=== PATIENT | male | born 1940 | race Caucasian/White ===

== ENCOUNTER 2023-04-08 18:10 | Emergency (ER) | payer MEDICARE ==
[~2023-04-08] VITALS: Ht 175.2 cm; Wt 90.7 kg
[~2023-04-08 18:10] MED LIST: AMLODIPINE BESYL5 MG PO; ASPIRIN81 M1 PO; KLOR-CON 1010 ME1 PO; LAGEVRIO PO; LASIX40 MG PO; MESTINON60 MG PO; MULTIVITAMIN1 EACH PO; Magnesium Oxid400 MG PO; PREDNISONE10 M1 PO; TOPROL XL25 MG PO; VITAMIN D3125 MCG PO; XARE20MG PO
[2023-04-08 19:11] LABS: BASO % 0.3 % (0.0-1.0); EOS # 0.1 10*3/uL (0.0-0.4); EOS % 0.8 % (1.0-4.0); HEMATOCRIT 49.5 % (42.0-52.0); LYMPH # 0.4 10*3/uL (1.3-4.4); LYMPH % 4.6 % (27.0-41.0); MEAN CORPUSCULAR HGB 29.9 pg (27.0-31.0); MEAN CORPUSCULAR HGB CONC 32.5 g/dl (33.0-37.0); MEAN PLATELET VOLUME 9.8 fl (9.6-12.3); MONO # 0.5 10*3/uL (0.1-1.0); MONO % 6.1 % (3.0-9.0); NEUT # 7.7 10*3/uL (2.3-7.9); NEUT % 87.2 % (47.0-73.0); PLATELET COUNT AUTOMATED 270 10*3/uL (130-400); RED BLOOD COUNT 5.38 10*6/uL (4.50-5.90); WHITE BLOOD COUNT 8.8 10*3/uL (4.8-10.8)
[2023-04-08 19:32] LABS: ALKALINE PHOSPHATASE 70 U/L (46-116); BUN 16 mg/dl (9-23); CHLORIDE 104 mmol/L (98-107); POTASSIUM 4.5 mmol/L (3.4-5.1); SGPT/ALT 22 U/L (5-49); TOTAL PROTEIN 6.4 gm/dL (6.0-8.0)
[2023-04-08] MEDS ORDERED: VIBRAMYCIN HYC100 MG PO (20:56)
== END 2023-04-08 22:58 | disposition home or self-care (01) ==
LOC: ED 18:10
PROVIDERS: Physician Assistant Medical
DX: J18.9 Pneumonia, unspecified organism (principal); F03.90 Unspecified dementia, unspecified severity, without behavioral disturbance, psychotic disturbance, mood disturbance, and anxiety; I10 Essential (primary) hypertension; I48.91 Unspecified atrial fibrillation; Z90.49 Acquired absence of other specified parts of digestive tract; Z98.890 Other specified postprocedural states; Z86.16 Personal history of COVID-19

== ENCOUNTER 2023-08-21 21:27 | Emergency (ER) | payer MEDICARE ==
[~2023-08-21] VITALS: Ht 175.2 cm; Wt 95.8 kg
[~2023-08-21 21:27] MED LIST changes: +VIBRAMYCIN HYC100 MG PO
== END 2023-08-22 00:22 ==
LOC: ED 21:27
DX: S20.211A Contusion of right front wall of thorax, initial encounter (principal); I10 Essential (primary) hypertension; R73.9 Hyperglycemia, unspecified; F03.90 Unspecified dementia, unspecified severity, without behavioral disturbance, psychotic disturbance, mood disturbance, and anxiety; I48.91 Unspecified atrial fibrillation; Z86.718 Personal history of other venous thrombosis and embolism; Z90.49 Acquired absence of other specified parts of digestive tract; Z98.890 Other specified postprocedural states; X58.XXXA Exposure to other specified factors, initial encounter; Y93.89 Activity, other specified; Y92.129 Unspecified place in nursing home as the place of occurrence of the external cause; Y99.8 Other external cause status

== ENCOUNTER 2023-09-24 22:14 | Emergency (ER) | payer MEDICARE ==
[~2023-09-24] VITALS: Ht 175.2 cm; Wt 103.0 kg
[~2023-09-24 22:14] MED LIST changes: +FLUONAZOLE200 MG PO
[2023-09-24 22:33] LABS: BASO % 0.4 % (0.0-1.0); EOS # 0.1 10*3/uL (0.0-0.4); EOS % 1.3 % (1.0-4.0); HEMATOCRIT 47.9 % (42.0-52.0); LYMPH # 0.6 10*3/uL (1.3-4.4); LYMPH % 5.7 % (27.0-41.0); MEAN CELL VOLUME 94.1 fl (80.0-94.0); MEAN CORPUSCULAR HGB 29.9 pg (27.0-31.0); MEAN CORPUSCULAR HGB CONC 31.7 g/dl (33.0-37.0); MEAN PLATELET VOLUME 10.2 fl (9.6-12.3); MONO # 0.9 10*3/uL (0.1-1.0); MONO % 8.5 % (3.0-9.0); NEUT # 8.5 10*3/uL (2.3-7.9); NEUT % 83.7 % (47.0-73.0); PLATELET COUNT AUTOMATED 263 10*3/uL (130-400); RED BLOOD COUNT 5.09 10*6/uL (4.50-5.90); RED CELL DISTRI WIDTH 13.1 % (0-14.5); WHITE BLOOD COUNT 10.2 10*3/uL (4.8-10.8)
[2023-09-24 22:53] LABS: BUN 24 mg/dl (9-23); CHLORIDE 103 mmol/L (98-107); POTASSIUM 5.1 mmol/L (3.4-5.1)
[2023-09-25] MEDS ORDERED: BUMETANIDE 1 MG/4 ML VIAL IV ONE (00:15)
[2023-09-25] MEDS ORDERED: Ipratropium Brom3 ML INH (13:56)
== END 2023-09-25 02:10 ==
LOC: ED 22:14
PROVIDERS: Internal Medicine
DX: I50.32 Chronic diastolic (congestive) heart failure (principal); N17.9 Acute kidney failure, unspecified; R60.0 Localized edema; Z79.899 Other long term (current) drug therapy; Z79.82 Long term (current) use of aspirin; Z90.49 Acquired absence of other specified parts of digestive tract